=== PATIENT | male | born 1985 | race American Indian/Alaskan Native ===

== ENCOUNTER 2018-08-21 12:14 | Emergency (ER) | payer OTHER ==
[2018-08-21 12:21] VITALS: BMI 28.2
[2018-08-21 12:22] VITALS: PULSE 82
[2018-08-21] MEDS ORDERED: Lidocaine 5% Patch TD STA (13:21)
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
[2018-08-21] MEDS ORDERED: Lidocaine 5% Patch TD ONE (13:26)
[2018-08-21 14:04] VITALS: BP 117/82; RESP 18; TEMP 99
[2018-08-21 20:49] VITALS: O2SAT 100
== END 2018-08-21 14:01 | disposition home or self-care (01) ==
LOC: C.ER 12:14
DX: S29.012A Strain of muscle and tendon of back wall of thorax, initial encounter (principal); V89.2XXA Person injured in unspecified motor-vehicle accident, traffic, initial encounter
CPT/HCPCS: 96372; 99284; J1885